=== PATIENT | female | born 1995 | race Two or more races ===

== ENCOUNTER 2018-11-11 02:57 | Emergency (ER) | payer OTHER ==
[2018-11-11 03:20] VITALS: BP 107/66; PULSE 75; TEMP 98; BMI 23.8
--- NOTE | 2018-11-11 05:59 | PDOC ---
History of Present Illness - General Chief Complaint: Chest Pain Stated Complaint: CHEST PAIN Time Seen by Provider: 11/11/18 05:59 History Source: Patient - History of Present Illness Initial Comments: 11/11/18 06:16 23 year old female c/o right arm tingling feeling and chest discomfort, patient reports todays episode likely related to stress. patient reports that she has a history of anxiety and has been on xanax. denies OCP use, recent travel, prolonged sitting. pmhx: anxiety Past History - Past Medical History Allergies/Adverse Reactions: Allergies Allergy/AdvReac Type Severity Reaction Status Date / Time No Known Allergies Allergy Verified 11/11/18 03:20 Home Medications: Ambulatory Orders NK [No Known Home Medication] 08/09/14 COPD: No - Reproductive History (#): 0 Para: 0 - Psycho Social/Smoking Cessation Hx Smoking History: Never smoked Number of Cigarettes Smoked Daily: 1 Hx Alcohol Use: No Drug/Substance Use Hx: No Review of Systems - Review of Systems Able to Perform ROS?: Yes Is the patient limited Albanian proficient: No Constitutional: No: Symptoms Reported, See HPI, Chills, Diaphoresis, Fever, Loss of Appetite, Malaise, Night Sweats, Weakness, Weight Stable, Unintentional Wgt. Loss, Unexplained wgt Loss, Other Cardiac (ROS): Yes: Chest Pain. No: Symptoms Reported, See HPI, Edema, Irregular Heart Rate, Lightheadedness, Palpitations, Syncope, Chest Tightness, Other ABD/GI: No: Symptoms Reported, See HPI, Abdominal Distended, Abd. Pain w/ defecation, Blood Streaked Bowels, Constipated, Diarrhea, Difficulty Swallowing , Nausea, Poor Appetite, Poor Fluid Intake, Rectal Bleeding, Vomiting, Indigestion, Abdominal cramping, Tarry Stools, Other *Physical Exam - Vital Signs Last Vital Signs Temp Pulse Resp BP Pulse Ox 98.0 F 75 18 107/66 98 11/11/18 03:18 11/11/18 03:18 11/11/18 03:18 11/11/18 03:18 11/11/18 03:18 - Physical Exam General Appearance: Yes: Appropriately Dressed Respiratory/Chest: positive: Lungs Clear, Normal Breath Sounds. negative: Chest Tender Cardiovascular: positive: Regular Rhythm, Regular Rate Gastrointestinal/Abdominal: positive: Normal Bowel Sounds, Soft. negative: Tender Integumentary: positive: Normal Color, Dry, Warm Neurologic: positive: Fully Oriented, Alert, Normal Mood/Affect Heart Score/ECG Review - History History: Slightly suspicious - Electrocardiogram EKG: Normal - ECG Intrepretation Rhythm: Regular Rhythm Comment:: 11/11/18 06:39 NSR : 63 bpm ED Treatment Course - ADDITIONAL ORDERS Additional order review: Laboratory Results 11/11/18 06:15 Urine HCG, Qual Negative - RADIOLOGY Radiology Studies Ordered: Category Date Time Status CHEST PA & LAT [RAD] Stat Radiology 11/11/18 06:14 Ordered Medical Decision Making - Medical Decision Making 11/11/18 06:28 A: chest pain P: EKG urine chest xray 11/11/18 06:30 wells score : 0 Perc rule :0 11/11/18 06:56 chest xray no acute finding. patient to follow up with pcp for management of anxiety Discharge - Discharge Information Problems reviewed: Yes Clinical Impression/Diagnosis: Chest pain Qualifiers: Chest pain type: unspecified Qualified Code(s): R07.9 - Chest pain, unspecified - Follow up/Referral Referrals: Glendy Lantigua MD [Primary Care Provider] - - Patient Discharge Instructions Patient Printed Discharge Instructions: DI for Chest Pain - Post Discharge Activity
--- NOTE | 2018-11-11 06:02 | PDOC ---
*Physical Exam - Vital Signs Last Vital Signs Temp Pulse Resp BP Pulse Ox 98.0 F 75 18 107/66 98 11/11/18 03:18 11/11/18 03:18 11/11/18 03:18 11/11/18 03:18 11/11/18 03:18 Medical Decision Making - Medical Decision Making 11/11/18 06:01 Patient seen by the advanced practice provider under my direct supervision. Ancillary testing reviewed as necessary. I agree with plan as outlined by the advanced practice provider. Discharge - Discharge Information Problems reviewed: Yes Clinical Impression/Diagnosis: Chest pain Qualifiers: Chest pain type: unspecified Qualified Code(s): R07.9 - Chest pain, unspecified - Follow up/Referral Referrals: Glendy Lantigua MD [Primary Care Provider] - - Patient Discharge Instructions Patient Printed Discharge Instructions: DI for Chest Pain - Post Discharge Activity
--- NOTE | 2018-11-11 10:03 | EKG ---
Test Reason : Blood Pressure : / mmHG Vent. Rate : 063 BPM Atrial Rate : 063 BPM P-R Int : 148 ms QRS Dur : 090 ms QT Int : 390 ms P-R-T Axes : 012 036 036 degrees QTc Int : 399 ms NORMAL SINUS RHYTHM NORMAL ECG NO PREVIOUS ECGS AVAILABLE Confirmed by MD ANTONIO, RITA ([id number]) on 11/11/2018 10:03:22 AM Referred By: Confirmed By:RITA ALVAREZ MD
== END 2018-11-11 07:06 | disposition home or self-care (01) ==
LOC: JER 02:57
DX: R07.9 Chest pain, unspecified (principal)
CPT/HCPCS: 71046-TC-FY; 84703; 93005; 93010; 99283-25

== ENCOUNTER 2018-12-30 22:00 | Emergency (ER) | payer OTHER ==
[2018-12-30 22:07] VITALS: BP 118/65; PULSE 82; TEMP 98.3; BMI 24.7
--- NOTE | 2018-12-30 22:22 | PDOC ---
History of Present Illness - General Chief Complaint: Vaginal Sxs Stated Complaint: VAGINAL CYST Time Seen by Provider: 12/30/18 22:14 History Source: Patient Exam Limitations: No Limitations - History of Present Illness Initial Comments: 12/30/18 22:21 23 year old female reports some swelling to vaginal wall noted today. denies pain, urinary symptoms. Past History - Past Medical History Allergies/Adverse Reactions: Allergies Allergy/AdvReac Type Severity Reaction Status Date / Time No Known Allergies Allergy Verified 11/11/18 03:20 Home Medications: Ambulatory Orders NK [No Known Home Medication] 08/09/14 COPD: No Other medical history: anxiety - Reproductive History (#): 0 Para: 0 - Psycho Social/Smoking Cessation Hx Smoking History: Current some day smoker Number of Cigarettes Smoked Daily: 1 Information on smoking cessation initiated: No Hx Alcohol Use: No Drug/Substance Use Hx: Yes ([facility]) *Physical Exam - Vital Signs Last Vital Signs Temp Pulse Resp BP Pulse Ox 98.3 F 82 18 118/65 99 12/30/18 22:05 12/30/18 22:05 12/30/18 22:05 12/30/18 22:05 12/30/18 22:05 - Physical Exam General Appearance: Yes: Appropriately Dressed Respiratory/Chest: positive: Lungs Clear, Normal Breath Sounds Cardiovascular: positive: Regular Rhythm, Regular Rate Female Pelvic Exam: positive: normal external exam, other (small cyst to labia. no erythema or tenderness noted) Extremity: positive: Normal Capillary Refill, Normal Inspection, Normal Range of Motion Integumentary: positive: Normal Color, Dry, Warm Neurologic: positive: Fully Oriented, Alert, Normal Mood/Affect ED Progress Note - Progress Note Progress Note: Labial Cyst P: entry processor follow up. no acute infection Discharge - Discharge Information Problems reviewed: Yes Clinical Impression/Diagnosis: Labial cyst Disposition: HOME - Follow up/Referral Referrals: Glendy Lantigua MD [Primary Care Provider] - - Patient Discharge Instructions Additional Instructions: please follow up with entry processor as soon as possible. - Post Discharge Activity Work/Back to School Note: Back to Work
== END 2018-12-30 23:08 | disposition home or self-care (01) ==
LOC: JERFT 22:00
DX: N90.7 Vulvar cyst (principal); Z86.59 Personal history of other mental and behavioral disorders; F17.210 Nicotine dependence, cigarettes, uncomplicated
CPT/HCPCS: 99281-25